=== PATIENT | male | born 1990 | race Hispanic/Latino ===

== ENCOUNTER 2022-10-18 15:51 | Emergency (ER) | payer OTHER ==
[~2022-10-18] VITALS: Ht 170.2 cm; Wt 96.2 kg
[2022-10-18] MEDS ORDERED: FLUT16H NASAL (17:38)
[2022-10-18] MEDS ORDERED: D-ME118S47 PO (17:38)
[2022-10-18 17:54] VITALS: BP 130/84
== END 2022-10-18 17:55 | disposition home or self-care (01) ==
LOC: EDH 15:51
DX: J06.9 Acute upper respiratory infection, unspecified (principal); B34.9 Viral infection, unspecified; Z20.822 Contact with and (suspected) exposure to COVID-19
CPT/HCPCS: 87804; 87880

== ENCOUNTER → 2022-10-18 | Outpatient (CLI) | payer OTHER ==
[~2022-10-18] MED LIST: D-ME118S47 PO; FLUT16H NASAL
== END | disposition home or self-care (01) ==
LOC: ICE 15:22
PROVIDERS: ATTEND Hospitalist
DX: Z20.822 Contact with and (suspected) exposure to COVID-19 (principal)
CPT/HCPCS: 87426